=== PATIENT | female | born 1995 | race Caucasian/White ===

== ENCOUNTER 2022-08-07 01:08 | Emergency (ER) | payer BC, SELFPAY ==
--- NOTE | 2022-08-07 | ECG_ITS ---
Test Reason : CHEST PAIN Blood Pressure : / mmHG Vent. Rate : 068 BPM Atrial Rate : 068 BPM P-R Int : 130 ms QRS Dur : 082 ms QT Int : 398 ms P-R-T Axes : 054 038 034 degrees QTc Int : 423 ms Normal sinus rhythm with sinus arrhythmia Normal ECG No previous ECGs available Referred By: Generic ED Physician Electronically Signed By:YENI LEE MD
--- NOTE | ~2022-08-07 | XR_ITS ---
EXAMINATION: XR CHEST CLINICAL INFORMATION: Chest pain COMPARISON: 02/02/2009 TECHNIQUE: 2 views of the chest were obtained. FINDINGS: The lungs are clear with no focal consolidation. No evidence of pneumothorax, pulmonary edema, or pleural effusions. The cardiomediastinal silhouette is unremarkable. No acute osseous findings. XR/XR chest 2V IMPRESSION: No acute cardiopulmonary findings.
[2022-08-07 01:45] VITALS: BP 117/74; PULSE 69; RESP 14; TEMP 36.8; O2SAT 98; BMI 24.1
--- OUTSIDE RECORDS SUMMARY | 2022-08-07 03:16 | XMS_ITS | Continuity of Care Document ---
:1995 Author Organization [facility] Address [address] [place] [address]- Care Team Providers Name Role Phone Gerardo CHOW, Javier Godwin Primary Care Physician Encounter [facility] Date(s): 10/26/21 - 11/25/21 [facility] [address] [place] [address]- Allergies, Adverse Reactions, Alerts No Known Medication Allergies Immunizations Given and Recorded Vaccine Date Status Refusal Reason tetanus/diphtheria/pertussis, acel(Tdap)1 09/09/21 Given influenza virus vaccine, inactivated2 09/09/21 Given influenza virus vaccine, inactivated 11/15/17 Recorded influenza virus vaccine, inactivated 08/22/16 Recorded influenza virus vaccine, inactivated 08/17/15 Recorded SARS-CoV-2 (COVID-19) mRNA BNT-162b2 vac 02/11/21 Given SARS-CoV-2 (COVID-19) mRNA BNT-162b2 vac 01/21/21 Given tetanus-diphtheria toxoids (Td) 11/25/18 Recorded Hepatitis A Pediatric Vaccine 11/05/15 Recorded Hepatitis A Pediatric Vaccine 04/29/15 Recorded Meningococcal Conjugate Vaccine 04/29/15 Recorded 1Result Comment: Pt handled inj [id number] Comment: Pt handled inj well Medications Double Electric Breast Pump Double Electric Breast Pump, See Instructions, # 1 each, Refills 0, Tot. Refills 0, Maintenance, pregnacy, 11/04/21 16:56:00 EST, Compound Start Date: 11/04/21 Status: OrderedPrenatal Multivitamins By Mouth, Daily, 0 Refills, Maintenance, 08/10/21 12:42:00 EDT, Partial fill upon patient request ifthe prescription is for a schedule II opioid drug. Start Date: 08/10/21 Status: Ordered Problem List Condition Effective Dates Status Health Status Informant Elevated glucose tolerance Active test(Confirmed) Acne vulgaris(Confirmed) Active Breech presentation(Confirmed) Active Echogenic focus of heart of fetus Active affecting antepartum care of mother(Confirmed) Hyperhidrosis(Confirmed) Active Low weight gain, antepartum(Confirmed) Active Ketonuria(Confirmed) Active 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
--- OUTSIDE RECORDS SUMMARY | 2022-08-07 03:16 | XMS_ITS | Continuity of Care Document ---
:1995 Author Organization [facility] Address Unavailable , Care Team Providers Name Role Phone Gerardo CHOW, Javier Godwin Primary Care Physician [facility] Date(s): 11/08/21 - 12/08/21 [facility] Allergies, Adverse Reactions, Alerts No Known Medication [...] 04/29/15 Recorded 1Result Comment: Pt handled inj [id number] Comment: Pt handled inj well Medications acetaminophen 325 mg oral capsule 2 capsule = 650 mg, By Mouth, Every 4 hours, PRN as needed for pain, # 90 capsule, 1 Refills, Maintenance, 12/03/21 11:57:00 EST, Capsule, [facility]/pharmacy #[id number], Partial fill upon patient request if the prescription is for a schedule II opioid drug., 170... Start Date: 12/03/21 Status: Ordereddocusate sodium 100 mg oral tablet 1 tablet = 100 mg, By Mouth, 2 times a day, PRN for constipation, # 60 tablet, 0 Refills, Maintenance, 11/27/21 7:16:00 EST, Tablet, [id number], Partial fill upon patient request if the prescription is for a schedule II opioid drug., 170, cm,... Start Date: 11/27/21 Status: OrderedDouble Electric Breast Pump Double Electric Breast Pump, See Instructions, # 1 each, Refills 0, Tot. Refills 0, Maintenance, pregnacy, 11/04/21 16:56:00 EST, Compound Start Date: 11/04/21 Status: Orderedibuprofen 800 mg oral tablet 800 mg, 1, tablet, By Mouth, Every 8 hours, # 50 tablet, Refills 0, Tot. Refills 0, Maintenance, 11/27/21 7:16:00 EST, Route to Pharmacy Electronically, [facility]/pharmacy #[id number], Partial fill upon patient request if the prescription is for a schedule II opi... Start Date: 11/27/21 Status: OrderedoxyCODONE 5 mg oral tablet 5 mg, 1, tablet, By Mouth, Every 6 hours, PRN, # 10 tablet, Refills 0, Tot. Refills 0, Maintenance, as needed for pain, 11/27/21 7:16:00 EST, [facility] to [facility], [id number], 170, cm, 11/27/21 0:03:00 EST, Height, 78, kg, 11/23/21... Start Date: 11/27/21 Status: OrderedPrenatal Multivitamins By Mouth, Daily, 0 Refills, Maintenance, 08/10/21 12:42:00 EDT, Partial fill upon patient request ifthe prescription is for a schedule II opioid drug. Start Date: 08/10/21 Status: Orderedsimethicone 80 mg oral tablet, chewable 80 mg, 1, tablet, Chew, 3 times a day, PRN, # 36 tablet, Refills 0, Tot. Refills 0, Maintenance, as needed for gas, 11/27/21 7:16:00 EST, Route to [facility], [id number], Partial fill upon patient request if the prescription is fo... Start Date: 11/27/21 Status: Ordered Problem List Condition Effective Dates [...]
--- OUTSIDE RECORDS SUMMARY | 2022-08-07 03:16 | XMS_ITS | Continuity of Care Document ---
:1995 Author Organization [facility] Address [address] [place] [address]- Care Team Providers Name Role Phone Gerardo CHOW, Javier Godwin Primary Care Physician [place] [facility] [id number] Date(s): 10/19/21 - 10/26/21 [facility] [address] [place] [address]- Attending Physician: Brenda Larsen MD Allergies, Adverse Reactions, Alerts No Known Medication Allergies Immunizations Given and Recorded Vaccine Date Status Refusal Reason tetanus/diphtheria/pertussis, acel(Tdap)1 09/09/21 Given influenza virus vaccine, inactivated2 09/09/21 Given influenza virus vaccine, inactivated 11/15/17 Recorded SARS-CoV-2 (COVID-19) mRNA BNT-162b2 vac 02/11/21 Given SARS-CoV-2 (COVID-19) mRNA BNT-162b2 vac 01/21/21 Given tetanus-diphtheria toxoids (Td) 11/25/18 Recorded Hepatitis A Pediatric Vaccine 11/05/15 Recorded Hepatitis A Pediatric Vaccine 04/29/15 Recorded Meningococcal Conjugate Vaccine 04/29/15 Recorded 1Result Comment: Pt handled inj [id number] Comment: Pt handled inj well Medications Multivitamins By Mouth, Daily, 0 Refills, Maintenance, 08/10/21 12:42:00 EDT, Partial fill upon patient request ifthe prescription is for a schedule II opioid drug. Start Date: 08/10/21 Status: Ordered Problem List Condition Effective Dates Status Health Status Informant Elevated glucose tolerance Active test(Confirmed) Acne vulgaris(Confirmed) Active Echogenic focus of heart of fetus Active affecting antepartum care of mother(Confirmed) Hyperhidrosis(Confirmed) Active Low weight gain, antepartum(Confirmed) Active Ketonuria(Confirmed) Active Dyspareunia in female(Confirmed) Active Vital Signs Most recent to oldest [Reference Range]: 1 Height 168.2 cm (10/19/21 3:12 PM) Weight 76 kg (10/19/21 3:12 PM) Body Mass Index [18.5-24.99] 26.86 *H* (10/19/21 3:12 PM) Blood Pressure [90-138/55-84 mm Hg] 120/66 mm Hg (10/19/21 3:12 PM) Blood pressure sites Arm, right (10/19/21 3:12 PM) Social History Social History Type Response Smoking Status Never (less than 100 in life time) entered on: 08/10/21 Sex
--- OUTSIDE RECORDS SUMMARY | 2022-08-07 03:16 | XMS_ITS | Continuity of Care Document ---
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
--- OUTSIDE RECORDS SUMMARY | 2022-08-07 03:16 | XMS_ITS | Continuity of Care Document ---
:1995 Author Organization [facility] Address [address] [place] [address]- Care Team Providers Name Role Phone Javier Carrillo MD Primary Care Physician Encounter [facility] [id number] Date(s): 08/10/21 - 09/09/21 [facility] [address] [place] [address]- Attending Physician: Rusty Marks Admitting Physician: Rusty Marks Referring Physician: AdmtrRusty Allergies, Adverse Reactions, Alerts No Known Medication [...] 04/29/15 Recorded 1Result Comment: Pt handled inj [id number] Comment: Pt handled inj well Medications Multivitamins [...] mother(Confirmed) 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
--- OUTSIDE RECORDS SUMMARY | 2022-08-07 03:16 | XMS_ITS | Continuity of Care Document ---
:1995 Author Organization [facility] Address Unavailable , Care Team Providers Name Role Phone Gerardo CHOW, Javier Godwin Primary Care Physician [place] [facility] [place] 12[place]27[place] 01/26/22 [facility] Allergies, Adverse Reactions, Alerts No Known [...] 04/29/15 Recorded 1Result Comment: Pt handled inj [id number] Comment: Pt handled inj well Medications acetaminophen 325 mg oral capsule 2 capsule = 650 mg, By Mouth, Every 4 hours, PRN as needed for pain, # 90 capsule, 1 Refills, Maintenance, 12/03/21 11:57:00 EST, [facility], [id number], Partial fill upon patient request if the [...] 11/27/21 7:16:00 EST, Route to Pharmacy Electronically, [facility]/pharmacy #[id number], Partial fill upon patient request if the prescription is for a schedule II opi... Start Date: 11/27/21 Status: OrderedLactation vitamin vitamin, Refills 0, Maintenance, 12/30/21 15:53:00 EST, Supply Start Date: 12/30/21 Status: OrderedoxyCODONE 5 mg oral tablet 5 mg, 1, tablet, By Mouth, Every 6 hours, PRN, # 10 tablet, Refills 0, Tot. Refills 0, Maintenance, as needed for pain, 11/27/21 7:16:00 EST, Route to Pharmacy Electronically, [facility]/pharmacy #[id number], 170, cm, 11/27/21 0:03:00 EST, Height, [...]
--- OUTSIDE RECORDS SUMMARY | 2022-08-07 03:16 | XMS_ITS | Continuity of Care Document ---
:1995 Author Organization [facility] Address [address] [place] [address]- Care Team Providers Name Role Phone Gerardo CHOW, Javier Godwin Primary Care Physician Encounter [facility] Date(s): 08/27/21 - 12/25/21 [facility] [address] [place], [place] [address] Attending Physician: Kasie Mueller MD Allergies, Adverse Reactions, Alerts No Known [...] 04/29/15 Recorded 1Result Comment: Pt handled inj [id number] Comment: Pt handled inj well Medications acetaminophen 325 mg oral capsule 2 capsule = 650 mg, By Mouth, Every 4 hours, PRN as needed for pain, # 90 capsule, 1 Refills, Maintenance, 12/03/21 11:57:00 EST, [facility]aps[facility], [id number], Partial fill upon patient request if the prescription is for a schedule II opioid drug., 170... Start Date: 12/03/21 Status: Ordereddocusate sodium 100 mg oral tablet 1 tablet = 100 mg, By Mouth, 2 times a day, PRN for constipation, # 60 tablet, 0 Refills, Maintenance, 11/27/21 7:16:00 EST, Tablet, [facility]/pharmacy #[id number], Partial fill upon patient request [...] 11/27/21 7:16:00 EST, Route to Pharmacy Electronically, [facility]/pharmacy #[id number], Partial fill upon patient request if the prescription is for a schedule II opi... Start Date: 11/27/21 Status: OrderedoxyCODONE 5 mg oral tablet 5 mg, 1, tablet, By Mouth, Every 6 hours, PRN, # 10 tablet, Refills 0, Tot. Refills 0, Maintenance, as needed for pain, 11/27/21 7:16:00 EST, Route to Pharmacy Electronically, [facility]/pharmacy #[id number], 170, cm, 11/27/21 0:03:00 EST, Height, [...] 11/27/21 7:16:00 EST, Route to Pharmacy Electronically, [facility]/pharmacy #[id number], Partial fill upon patient request [...]
--- OUTSIDE RECORDS SUMMARY | 2022-08-07 03:16 | XMS_ITS | Continuity of Care Document ---
:1995 Author Organization [facility] Address [address] [place] [address]- Care Team Providers Name Role Phone Gerardo CHOW, Javier Godwin Primary Care Physician [place] [facility] [place]s): 07/28/21 - 08/27/21 [facility] [address] [place] [address] Attending Physician: Rusty Marks Admitting Physician: Rusty Marks Referring Physician: Admtr, Rusty Allergies, Adverse Reactions, Alerts No Known Medication Allergies Immunizations Given and Recorded Vaccine Date Status Refusal Reason SARS-CoV-2 (COVID-19) mRNA BNT-162b2 vac 02/11/21 Given SARS-CoV-2 (COVID-19) mRNA BNT-162b2 vac 01/21/21 Given Medications Multivitamins By Mouth, Daily, 0 Refills, [...]
--- OUTSIDE RECORDS SUMMARY | 2022-08-07 03:16 | XMS_ITS | Continuity of Care Document ---
:1995 Author Organization [facility] Address [address] [place] [address]- Care Team Providers Name Role Phone Gerardo CHOW, Javier Godwin Primary Care Physician Encounter [facility] [place] Date(s): 11/10/21 - 12/10/21 [facility] [address] [place] [address]- Allergies, Adverse Reactions, Alerts No Known Medication [...] 04/29/15 Recorded 1Result Comment: Pt handled inj [id number] Comment: Pt handled inj well Medications acetaminophen 325 mg oral capsule 2 capsule = 650 mg, By Mouth, Every 4 hours, PRN as needed for pain, # 90 capsule, 1 Refills, Maintenance, 12/03/21 11:57:00 EST, [facility], [id number], Partial fill upon patient request if the [...] 11/27/21 7:16:00 EST, Route to Pharmacy Electronically, [facility]/pharmacy #[id number], Partial fill upon patient request if [...]
--- OUTSIDE RECORDS SUMMARY | 2022-08-07 03:16 | XMS_ITS | Continuity of Care Document ---
:1995 Author Organization [facility] Address [address] [place] [address]- Care Team Providers Name Role Phone Gerardo CHOW, Javier Godwin Primary Care Physician Encounter [facility] Date(s): 10/17/21 - 11/16/21 [facility] [address] [place] [address]- Allergies, Adverse Reactions, Alerts No Known Medication [...] 04/29/15 Recorded 1Result Comment: Pt handled inj [id number] Comment: Pt handled inj well Medications Double [...]
--- OUTSIDE RECORDS SUMMARY | 2022-08-07 03:16 | XMS_ITS | Continuity of Care Document ---
:1995 Author Organization [facility] Address [address] [place] [address]- Care Team Providers Name Role Phone Gerardo CHOW, Javier Godwin Primary Care Physician [place] [facility] [place] 08/09/21 - 09/08/21 [facility] [address] [place], [place] [address] Allergies, Adverse Reactions, Alerts No Known Medication Allergies Immunizations Given and Recorded Vaccine Date Status Refusal Reason SARS-CoV-2 (COVID-19) mRNA BNT-162b2 vac 02/11/21 Given SARS-CoV-2 (COVID-19) mRNA BNT-162b2 vac 01/21/21 Given tetanus-diphtheria toxoids (Td) 11/25/18 Recorded influenza virus vaccine, inactivated 11/15/17 Recorded Hepatitis A Pediatric Vaccine 11/05/15 Recorded Hepatitis A Pediatric Vaccine 04/29/15 Recorded Meningococcal Conjugate Vaccine 04/29/15 Recorded Medications Multivitamins By Mouth, Daily, 0 Refills, [...]
--- OUTSIDE RECORDS SUMMARY | 2022-08-07 03:16 | XMS_ITS | Continuity of Care Document ---
:1995 Author Organization [facility] Address [address] [place] [address]- Care Team Providers Name Role Phone Javier Carrillo MD Primary Care Physician Encounter [facility] [id number] Date(s): 06/19/22 - 07/19/22 [facility] [address], [place] [address] Attending Physician: Rusty Marks Admitting Physician: AdmRusty hassan Referring Physician: AdmtrRusty Allergies, Adverse Reactions, Alerts [...] 04/29/15 Recorded 1Result Comment: Pt handled inj [id number] Comment: Pt handled inj well Problem List Condition Effective Dates Status Health Status Informant Acne vulgaris(Confirmed) Active anxiety(Confirmed) Active Hyperhidrosis(Confirmed) Active Ketonuria(Confirmed) Active 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 Care Team PersonnelName: Gerardo CHOW Javier Godwin Address: [address] [place] [id number]
--- OUTSIDE RECORDS SUMMARY | 2022-08-07 03:16 | XMS_ITS | Continuity of Care Document ---
:1995 Author Organization [facility] Address [address] [place] [address]- Care Team Providers Name Role Phone Gerardo CHOW, Javier Godwin Primary Care Physician Encounter [facility] [place] [place] [id number] Date(s): 08/17/21 - 08/24/21 [facility] [address] [place] [address]- Attending Physician: Not on Staff, Attending MD Allergies, Adverse Reactions, Alerts No Known [...]
--- OUTSIDE RECORDS SUMMARY | 2022-08-07 03:16 | XMS_ITS | Continuity of Care Document ---
:1995 Author Organization [facility] Address [address] [place] [address]- Care Team Providers Name Role Phone Gerardo CHOW, Javier Godwin Primary Care Physician Encounter [facility] Date(s): 10/26/21 - 10/26/[address] [address] Discharge Disposition: A-D/C Home Attending Physician: Farzana Patino MD Admitting Physician: Farzana Patino MD Referring Physician: Farzana Patino MD Allergies, Adverse Reactions, Alerts No Known [...] 04/29/15 Recorded 1Result Comment: Pt handled inj [id number] Comment: Pt handled inj well Medications Multivitamins [...] Active Vital Signs Most recent to oldest 1 2 3 [Reference Range]: Oxygen Saturation [94-100 %] 100 % 100 % 100 % (10/26/21 6:18 PM) (10/26/21 5:56 PM) (10/26/21 5:50 PM) Blood Pressure [90-138/55-84 113/74 mm Hg 121/67 mm Hg 122 /73 mm Hg mm Hg] (10/26/21 6:18 PM) (10/26/21 5:56 PM) (10/26/21 5:50 PM) Respiratory Rate [16-30 18 br/min br/min] (10/26/21 5:50 PM) Temperature [96.8-100.4 98.0 DegF DegF] (10/26/21 5:50 PM) Mode of Delivery (Oxygen) Room air (10/26/21 5:50 PM) Blood pressure sites Arm, right (10/26/21 5:50 PM) Temperature Route Oral (10/26/21 5:50 PM) Social History Social History Type Response Smoking Status Never (less than 100 in life time) entered on: 08/10/21 Sex
--- OUTSIDE RECORDS SUMMARY | 2022-08-07 03:16 | XMS_ITS | Continuity of Care Document ---
:1995 Author Organization [facility] Address [address] [place] [address]- Care Team Providers Name Role Phone Gerardo CHOW, Javier Godwin Primary Care Physician [facility]counter [facility] Date(s): 12/06/21 - 01/22/22 [facility] [address] [place], [place] [address] Attending Physician: Ayaan Sherman MD Allergies, Adverse Reactions, Alerts No Known [...] 04/29/15 Recorded 1Result Comment: Pt handled inj [id number] Comment: Pt handled inj well Medications acetaminophen 325 mg oral capsule 2 capsule = 650 mg, By Mouth, Every 4 hours, PRN as needed for pain, # 90 capsule, 1 Refills, Maintenance, 12/03/21 11:57:00 EST, [id number], Partial fill upon patient request if the prescription is for a schedule II opioid drug., 170... Start Date: 12/03/21 Status: Ordereddocusate sodium 100 mg oral tablet 1 tablet = 100 mg, By Mouth, 2 times a day, PRN for constipation, # 60 tablet, 0 Refills, Maintenance, 11/27/21 7:16:00 EST, Tablet, [facility]/pharmacy #[id number], Partial fill upon patient request if [...] 11/27/21 7:16:00 EST, Route to Pharmacy Electronically, [facility]/pharmacy #[id number], Partial fill upon patient request if [...] 11/27/21 7:16:00 EST, Route to Pharmacy Electronically, [facility]/pharmacy #[id number], 170, cm, 11/27/21 0:03:00 EST, Height, [...] 11/27/21 7:16:00 EST, Route to Pharmacy Electronically, [facility]/pharmacy #[id number], Partial fill upon patient request if the [...]
--- OUTSIDE RECORDS SUMMARY | 2022-08-07 03:16 | XMS_ITS | Continuity of Care Document ---
:1995 Author Organization [facility] Address [address] [place] [address]- Care Team Providers Name Role Phone Gerardo CHOW, Javier Godwin Primary Care Physician Encounter [facility] Date(s): 12/14/21 - 01/14/22 [facility] [address] [place], [place] [address] Attending Physician: Araceli Auguste MD Allergies, Adverse Reactions, Alerts No Known [...] 04/29/15 Recorded 1Result Comment: Pt handled inj [id number] Comment: Pt handled inj well Medications acetaminophen 325 mg oral capsule 2 capsule = 650 mg, By Mouth, Every 4 hours, PRN as needed for pain, # 90 capsule, 1 Refills, Maintenance, 12/03/21 11:57:00 EST, [facility], [id number], Partial fill upon patient request if the prescription is for a schedule II opioid drug., 170... Start Date: 12/03/21 Status: Ordereddocusate sodium 100 mg oral tablet 1 tablet = 100 mg, By Mouth, 2 times a day, PRN for constipation, # 60 tablet, 0 Refills, Maintenance, 11/27/21 7:16:00 EST, Tablet, [facility]/pharmacy #[id number], Partial fill upon patient request if [...] 11/27/21 7:16:00 EST, Route to Pharmacy Electronically, [facility]/pharmacy #[id number], Partial fill upon patient request if [...] 11/27/21 7:16:00 EST, Route to Pharmacy Electronically, [facility]/pharmacy #[id number], 170, cm, 11/27/21 0:03:00 EST, Height, [...] 11/27/21 7:16:00 EST, Route to Pharmacy Electronically, [facility]/pharmacy #[id number], Partial fill upon patient request if the [...]
--- OUTSIDE RECORDS SUMMARY | 2022-08-07 03:16 | XMS_ITS | Continuity of Care Document ---
:1995 Author Organization [facility] Address [address] [place] [address]- Care Team Providers Name Role Phone Gerardo CHOW, Javier Godwin Primary Care Physician Encounter [facility] Date(s): 07/28/21 - 08/27/21 [facility] [address] [place] [address] Attending Physician: Rusty Marks Admitting Physician: Rusty [...]
--- OUTSIDE RECORDS SUMMARY | 2022-08-07 03:16 | XMS_ITS | Continuity of Care Document ---
:1995 Author Organization [facility] Address [address] [place] [address]- Care Team Providers Name Role Phone Gerardo CHOW, Javier Godwin Primary Care Physician [facility]counter [facility] Date(s): 09/03/21 - 01/01/22 [facility] [address] [place], [place] [address] Attending Physician: Ayaan Sherman MD Allergies, [...] 04/29/15 Recorded 1Result Comment: Pt handled inj [id number] Comment: Pt handled inj well Medications acetaminophen 325 mg oral capsule 2 capsule = 650 mg, By Mouth, Every 4 hours, PRN as needed for pain, # 90 capsule, 1 Refills, Maintenance, 12/03/21 11:57:00 EST, Capsule, [id number], Partial fill upon patient request if the prescription is for a schedule II opioid drug., 170... Start Date: 12/03/21 Status: Ordereddocusate sodium 100 mg oral tablet 1 tablet = 100 mg, By Mouth, 2 times a day, PRN for constipation, # 60 tablet, 0 Refills, Maintenance, 11/27/21 7:16:00 EST, Tablet, [facility]/pharmacy #[id number], Partial fill upon patient [...] 11/27/21 7:16:00 EST, Route to Pharmacy Electronically, [facility]/pharmacy #[id number], Partial fill upon patient [...] 11/27/21 7:16:00 EST, Route to Pharmacy Electronically, [facility]/pharmacy #[id number], 170, cm, 11/27/21 0:03:00 [...] 11/27/21 7:16:00 EST, Route to Pharmacy Electronically, [facility]/pharmacy #[id number], Partial fill upon patient request if the [...]
--- OUTSIDE RECORDS SUMMARY | 2022-08-07 03:16 | XMS_ITS | Continuity of Care Document ---
:1995 Author Organization [facility] Address [address] [place] [address]- Care Team Providers Name Role Phone Gerardo CHOW, Javier Godwin Primary Care Physician [place] [facility] [id number] Date(s): 08/12/21 - 08/19/21 [facility] [address] [place] [address]- Attending Physician: Ayaan Sherman MD Allergies, Adverse [...] oldest [Reference Range]: 1 Height 168.2 cm (08/12/21 4:11 PM) Weight 70.7 kg (08/12/21 4:11 PM) Body Mass Index [18.5-24.99] 24.99 (08/12/21 4:11 PM) Blood Pressure [90-138/55-84 mm Hg] 112/62 mm Hg (08/12/21 4:11 PM) Blood pressure sites Arm, right (08/12/21 4:11 PM) Weight Obtained Via Standing scale (08/12/21 4:11 PM) Social History Social History Type Response Smoking Status Never (less than 100 in life time) entered on: 08/10/21 Sex
--- OUTSIDE RECORDS SUMMARY | 2022-08-07 03:16 | XMS_ITS | Continuity of Care Document ---
:1995 Author Organization [facility] Address [address] [place] [address]- Care Team Providers Name Role Phone Javier Carrillo MD Primary Care Physician Encounter [facility] Date(s): 06/15/22 - 07/19/22 [facility] [address] [place] [address]- Attending Physician: Sal Madison Allergies, Adverse Reactions, Alerts No Known Medication [...] 04/29/15 Recorded 1Result Comment: Pt handled inj [id number] Comment: Pt handled inj well Problem List Condition Effective Dates Status Health Status Informant Acne vulgaris(Confirmed) Active anxiety(Confirmed) Active Hyperhidrosis(Confirmed) Active Ketonuria(Confirmed) Active 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 Care Team PersonnelName: Javier Carrillo MD Address: [address] [place] [address]- [place]
--- OUTSIDE RECORDS SUMMARY | 2022-08-07 03:16 | XMS_ITS | Continuity of Care Document ---
:1995 Author Organization [facility] Address [address] [place] [address]- Care Team Providers Name Role Phone Gerardo CHOW, Javier Godwin Primary Care Physician Encounter [facility] Date(s): 08/16/21 - 09/15/21 [facility] [address] [place] [address]- Allergies, Adverse Reactions, Alerts No Known Medication [...] 04/29/15 Recorded 1Result Comment: Pt handled inj [id number] Comment: Pt handled inj well Medications Multivitamins [...]
--- OUTSIDE RECORDS SUMMARY | 2022-08-07 03:16 | XMS_ITS | Continuity of Care Document ---
:1995 Author Organization [facility] Address [address] [place] [address]- Care Team Providers Name Role Phone Gerardo CHOW, Javier Godwin Primary Care Physician [facility] Date(s): 12/02/21 - 01/01/22 [facility] [address] [place], [place] [address] Allergies, Adverse Reactions, Alerts No [...] 04/29/15 Recorded 1Result Comment: Pt handled inj [id number] Comment: Pt handled inj well Medications acetaminophen 325 mg oral capsule 2 capsule = 650 mg, By Mouth, Every 4 hours, PRN as needed for pain, # 90 capsule, 1 Refills, Maintenance, 12/03/21 11:57:00 EST, [facility], [id number], Partial fill upon patient request if the [...] 11/27/21 7:16:00 EST, Route to Pharmacy Electronically, [facility]/pharmacy #[id number], Partial fill upon patient request [...] 11/27/21 7:16:00 EST, Route to Pharmacy Electronically, [facility]/pharmacy #[id number], 170, cm, 11/27/21 0:03:00 EST, [...] 11/27/21 7:16:00 EST, Route to Pharmacy Electronically, [facility]/pharmacy #[id number], Partial fill upon patient request if the [...]
--- OUTSIDE RECORDS SUMMARY | 2022-08-07 03:16 | XMS_ITS | Continuity of Care Document ---
:1995 Author Organization [facility] Address Unavailable , Care Team Providers Name Role Phone Gerardo CHOW, Javier Godwin Primary Care Physician [place] [facility] [place]06[place]22 [place] 05/06/22 [facility] Allergies, Adverse Reactions, Alerts No Known Medication [...] 04/29/15 Recorded 1Result Comment: Pt handled inj [id number] Comment: Pt handled inj well Problem List Condition Effective Dates Status Health Status Informant Acne vulgaris(Confirmed) Active anxiety(Confirmed) Active Hyperhidrosis(Confirmed) Active Ketonuria(Confirmed) Active 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
--- OUTSIDE RECORDS SUMMARY | 2022-08-07 03:16 | XMS_ITS | Continuity of Care Document ---
:1995 Author Organization [facility] Address [address] [place] [address]- Care Team Providers Name Role Phone Gerardo CHOW, Javier Godwin Primary Care Physician [facility]counter [facility] Date(s): 10/07/21 - 10/14/21 [facility] [address] [place] [address]- Attending Physician: Kasie Mueller MD Allergies, Adverse [...] 04/29/15 Recorded 1Result Comment: Pt handled inj [id number] Comment: Pt handled inj well Medications Multivitamins [...] Hyperhidrosis(Confirmed) Active Low weight gain, antepartum(Confirmed) Active Dyspareunia in female(Confirmed) Active Vital Signs Most recent to oldest [Reference Range]: 1 Height 168.2 cm (10/07/21 10:47 AM) Weight 73.0 kg (10/07/21 10:47 AM) Body Mass Index [18.5-24.99] 25.8 *H* (10/07/21 10:47 AM) Dry Weight 73.0 kg (10/07/21 10:47 AM) Weight Obtained Via Standing scale (10/07/21 10:47 AM) Dry Weight Obtained Via Standing scale (10/07/21 10:47 AM) Social History Social History Type Response Smoking Status Never (less than 100 in life time) entered on: 08/10/21 Sex
--- OUTSIDE RECORDS SUMMARY | 2022-08-07 03:16 | XMS_ITS | Continuity of Care Document ---
:1995 Author Organization [facility] Address [address] [place] [address]- Care Team Providers Name Role Phone Gerardo CHOW, Javier Godwin Primary Care Physician [facility]counter [facility] Date(s): 09/24/21 - 09/24/[address] [address] Discharge Disposition: A-D/C Home Attending Physician: Shannon Aviles MD Admitting Physician: Shannon Aviles MD Referring Physician: Shannon Aviles MD Allergies, Adverse Reactions, [...] 04/29/15 Recorded 1Result Comment: Pt handled inj [id number] Comment: Pt handled inj well Medications Multivitamins [...]
--- OUTSIDE RECORDS SUMMARY | 2022-08-07 03:16 | XMS_ITS | Continuity of Care Document ---
:1995 Author Organization [facility] Address [address] [place] [address]- Care Team Providers Name Role Phone Javier Carrillo MD Primary Care Physician En[place] [facility] [place] Date(s): 06/27/22 - 08/06/22 [facility] [address] [place], [place] [address] Attending Physician: Ayaan Sherman MD Allergies, Adverse [...] 04/29/15 Recorded 1Result Comment: Pt handled inj [id number] Comment: Pt handled inj well Problem List Condition Confirmation Course Effective Dates Status Health I nformant Status Acne vulgaris Confirmed Active anxiety Confirmed Active Hyperhidrosis Confirmed Active Ketonuria Confirmed Active Dyspareunia in Confirmed Active female Social History Social History Type Response Smoking Status Never (less than 100 in life time) entered on: 08/10/21 Sex Patient Care team information PersonnelName: Javier Carrillo MD Address: Address: [address] [place], [place] [address]
--- OUTSIDE RECORDS SUMMARY | 2022-08-07 03:16 | XMS_ITS | Continuity of Care Document ---
:1995 Author Organization [facility] Address [address] [place] [address]- Care Team Providers Name Role Phone Javier Carrillo MD Primary Care Physician [place] [facility] [place](s): 11/24/21 - 11/27/[address] [address] Discharge Disposition: A-D/C Home Attending Physician: Kyra Vazquez MD Admitting Physician: Kyra Vazquez MD Referring Physician: Kyra Vazquez MD Allergies, Adverse Reactions, Alerts No Known [...] 04/29/15 Recorded 1Result Comment: Pt handled inj [id number] Comment: Pt handled inj well Medications acetaminophen 325 mg oral capsule 2 capsule = 650 mg, By Mouth, Every 4 hours, PRN as needed for pain, # 50 capsule, 0 Refills, Maintenance, 11/27/21 7:16:00 EST, [facility], [id number], Partial fill upon patient request if the prescription is for a schedule II opioid drug., 170,... Start Date: 11/27/21 Status: OrderedAcetaminophen Tablet 650 mg, Tablet, By Mouth, (1-3), may give 325mg per patient preference and re- dose with 325mg within4 hours if needed. Patient should only receive a total of 650mg of Acetaminophen every 4 hours., 11/27/21 8:00:00 EST Start Date: 11/27/21 Stop Date: 11/27/21 Status: Completeddocusate sodium 100 mg oral tablet 1 tablet = 100 mg, By Mouth, 2 times a day, PRN for constipation, # 60 tablet, 0 Refills, Maintenance, 11/27/21 7:16:00 EST, Tablet, [facility]/pharmacy #[id number], Partial fill upon patient request if [...] 7:16:00 EST, Route to Pharmacy Electronically, [facility]/pharmacy #[id number], Partial fill upon patient request if the prescription is for a schedule II opi... Start Date: 11/27/21 Status: OrderedoxyCODONE 5 mg oral tablet 5 mg, 1, tablet, By Mouth, Every 6 hours, PRN, # 10 tablet, Refills 0, Tot. Refills 0, Maintenance, as needed for pain, 11/27/21 7:16:00 EST, Route to Pharmacy Electronically, [facility]/pharmacy #[id number], 170, cm, 11/27/21 0:03:00 EST, Height, 78, kg, 11/23/21... Start Date: 11/27/21 Status: OrderedOxyCODONE IR Tablet 5 mg, Tablet, By Mouth, Every 3 hours, PRN for Pain , Severe, (7-10), Routine, 11/25/21 8:14:00 EST Start Date: 11/25/21 Stop Date: 11/27/21 Status: DiscontinuedPrenatal Multivitamins By Mouth, Daily, 0 Refills, Maintenance, [...] 7:16:00 EST, Route to Pharmacy Electronically, [facility]/pharmacy #[id number], Partial fill upon patient request if the prescription is fo... Start Date: 11/27/21 Status: Ordered Problem List Condition Effective Dates Status Health Status Informant Elevated glucose tolerance Active test(Confirmed) Acne vulgaris(Confirmed) Active Breech presentation(Confirmed) Active Echogenic focus of heart of fetus Active affecting antepartum care of mother(Confirmed) Hyperhidrosis(Confirmed) Active Low weight gain, antepartum(Confirmed) Active Ketonuria(Confirmed) Active Dyspareunia in female(Confirmed) Active Procedures Procedure Date Related Diagnosis Body Site Status delivery only; 11/24/21 Comp leted Vital Signs Most recent to oldest 1 2 3 4 [Reference Range]: Height 170 cm 170 cm 170 cm (11/27/21 12:03 AM) (11/26/21 3:28 PM) (11/26/21 12:10 AM ) Weight 78 kg (11/23/21 7:19 PM) Oxygen Saturation 100 % 100 % 95 % [94-100 %] (11/27/21 8:00 AM) (11/27/21 12:03 AM) (11/26/21 3:28 PM) Pulse Rate [55-90 bpm] 82 bpm 81 bpm 83 bpm (11/27/21 8:00 AM) (11/27/21 12:03 AM) (11/26/21 3:28 PM) Body Mass Index 26.99 [18.5-24.99] *H* (11/23/21 7:19 PM) Blood Pressure 121/77 mm Hg 129/76 mm Hg 126/77 mm Hg [90-138/55-84 mm Hg] (11/27/21 8:00 AM) (11/27/21 12:03 AM) (11/26/21 3:28 PM) Respiratory Rate [16-30 20 br/min 18 br/min 18 br/min 18 b r/min br/min] (11/27/21 10:23 AM) (11/27/21 8:00 AM) (11/27/21 7:02 AM) (11/27/21 7:02 AM) Temperature [96.8-100.4 98.5 DegF 97.8 DegF 98.0 DegF DegF] (11/27/21 8:00 AM) (11/27/21 12:03 AM) (11/26/21 3:28 PM) Mode of Delivery Room air Room air Room air (Oxygen) (11/27/21 8:00 AM) (11/27/21 12:03 AM) (11/26/21 3:28 PM) Blood pressure sites Arm, left Arm, right Arm, right (11/27/21 8:00 AM) (11/27/21 12:03 AM) (11/26/21 3:28 PM) Temperature Route Oral Oral Oral (11/27/21 8:00 AM) (11/27/21 12:03 AM) (11/26/21 3:28 PM) Dry Weight 78 kg (11/23/21 7:19 PM) Social History Social History Type Response Smoking Status Never (less than 100 in life time) entered on: 08/10/21 Sex
--- OUTSIDE RECORDS SUMMARY | 2022-08-07 03:16 | XMS_ITS | Continuity of Care Document ---
:1995 Author Organization [facility] Address [address] [place] [address]- Care Team Providers Name Role Phone Gerardo CHOW, Javier Godwin Primary Care Physician Encounter [facility] Date(s): 04/06/22 - 04/13/22 [facility] [address] [place], [place] [address] Attending Physician: Kasie Mueller MD Allergies, Adverse [...] 04/29/15 Recorded 1Result Comment: Pt handled inj [id number] Comment: Pt handled inj well Medications No Known Medications Problem List Condition Effective Dates Status Health Status Informant Acne vulgaris(Confirmed) Active anxiety(Confirmed) Active Hyperhidrosis(Confirmed) Active Ketonuria(Confirmed) Active Dyspareunia in female(Confirmed) Active Vital Signs Most recent to oldest [Reference Range]: 1 Height 170 cm (04/06/22 2:50 PM) Social History Social History Type Response Smoking Status Never (less than 100 in life time) entered on: 08/10/21 Sex
--- OUTSIDE RECORDS SUMMARY | 2022-08-07 03:16 | XMS_ITS | Continuity of Care Document ---
:1995 Author Organization [facility] Address [address] [place] [address]- Care Team Providers Name Role Phone Gerardo CHOW, Javier Godwin Primary Care Physician Encounter [facility] Date(s): 10/07/21 - 10/14/21 [facility] [address] [place] [address] Attending Physician: Not on Staff, Attending MD Referring Physician: Ayaan Sherman MD Allergies, Adverse Reactions, [...] 04/29/15 Recorded 1Result Comment: Pt handled inj [id number] Comment: Pt handled inj well Medications Multivitamins [...] gain, antepartum(Confirmed) Active 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
--- OUTSIDE RECORDS SUMMARY | 2022-08-07 03:16 | XMS_ITS | Continuity of Care Document ---
:1995 Author Organization [facility] Address [address] [place] [address]- Care Team Providers Name Role Phone Gerardo CHOW, Javier Godwin Primary Care Physician [place] [facility] [id number] Date(s): 10/26/21 - 11/02/21 [facility] [address] [place] [address]- Attending Physician: Not on Staff, Attending MD [...] 04/29/15 Recorded 1Result Comment: Pt handled inj [id number] Comment: Pt handled inj well Medications Multivitamins [...] oldest [Reference Range]: 1 Height 168.2 cm (10/26/21 4:15 PM) Blood Pressure [90-138/55-84 mm Hg] 150/90 mm Hg *H* (10/26/21 4:15 PM) Blood pressure sites Arm, left (10/26/21 4:15 PM) Social History Social History Type Response Smoking Status Never (less than 100 in life time) entered on: 08/10/21 Sex
--- OUTSIDE RECORDS SUMMARY | 2022-08-07 03:16 | XMS_ITS | Continuity of Care Document ---
:1995 Author Organization [facility] Address [address] [place] [address]- Care Team Providers Name Role Phone Gerardo CHOW, Javier Godwin Primary Care Physician Encounter [facility] Date(s): 10/07/21 - 11/06/[facility] [address] [place] [address] Attending Physician: Rusty Marks Admitting Physician: Admtr, Rusty Referring Physician: Admtr, Ar8 Allergies, Adverse Reactions, Alerts No Known Medication [...] 04/29/15 Recorded 1Result Comment: Pt handled inj [id number] Comment: Pt handled inj well Medications Double [...]
--- OUTSIDE RECORDS SUMMARY | 2022-08-07 03:16 | XMS_ITS | Continuity of Care Document ---
:1995 Author Organization [facility] Address [address] [place] [address]- Care Team Providers Name Role Phone Gerardo CHOW, Javier Godwin Primary Care Physician [place] [facility] [place]16[place] 09/15/21 [facility] [address] [place] [address]- Allergies, Adverse Reactions, Alerts No Known Medication [...] 04/29/15 Recorded 1Result Comment: Pt handled inj [id number] Comment: Pt handled inj well Medications Multivitamins [...]
--- OUTSIDE RECORDS SUMMARY | 2022-08-07 03:16 | XMS_ITS | Continuity of Care Document ---
:1995 Author Organization [facility] Address [address] [place] [address]- Care Team Providers Name Role Phone Gerardo CHOW, Javier Godwin Primary Care Physician En[place] [facility] [place] Date(s): 11/18/21 - 11/25/21 [facility] [address] [place] [address]- Attending Physician: Ayaan Sherman MD Allergies, Adverse [...] 04/29/15 Recorded 1Result Comment: Pt handled inj [id number] Comment: Pt handled inj well Medications Double [...]
--- OUTSIDE RECORDS SUMMARY | 2022-08-07 03:16 | XMS_ITS | Continuity of Care Document ---
:1995 Author Organization [facility] Address [address] [place] [address]- Care Team Providers Name Role Phone Gerardo CHOW, Javier Godwin Primary Care Physician En[facility] [place] Date(s): 12/30/21 - 01/06/22 [facility] [address] [place], [place] [address] Attending Physician: Ayaan Sherman [...] 04/29/15 Recorded 1Result Comment: Pt handled inj [id number] Comment: Pt handled inj well Medications acetaminophen 325 mg oral capsule 2 capsule = 650 mg, By Mouth, Every 4 hours, PRN as needed for pain, # 90 capsule, 1 Refills, Maintenance, 12/03/21 11:57:00 EST, [id number] Partial fill upon patient request if the prescription is for a schedule II opioid drug., 170... Start Date: 12/03/21 Status: Ordereddocusate sodium 100 mg oral tablet 1 tablet = 100 mg, By Mouth, 2 times a day, PRN for constipation, # 60 tablet, 0 Refills, Maintenance, 11/27/21 7:16:00 EST, Tablet, [facility]/pharmacy #[id number], Partial fill upon patient request [...] 11/27/21 7:16:00 EST, Route to Pharmacy Electronically, [facility]/pharmacy #[id number], Partial fill upon patient request [...] 11/27/21 7:16:00 EST, Route to Pharmacy Electronically, [facility]/pharmacy #[id number], 170, cm, 11/27/21 0:03:00 EST, [...] 11/27/21 7:16:00 EST, Route to Pharmacy Electronically, [facility]/pharmacy #[id number], Partial fill upon patient request if the [...] oldest [Reference Range]: 1 Height 170 cm (12/30/21 3:52 PM) Weight 66.3 kg (12/30/21 3:52 PM) Body Mass Index [18.5-24.99] 22.94 (12/30/21 3:52 PM) Blood Pressure [90-138/55-84 mm Hg] 104/62 mm Hg (12/30/21 3:52 PM) Blood pressure sites Arm, right (12/30/21 3:52 PM) Weight Obtained Via Standing scale (12/30/21 3:52 PM) Social History Social History Type Response Smoking Status Never (less than 100 in life time) entered on: 08/10/21 Sex
--- OUTSIDE RECORDS SUMMARY | 2022-08-07 03:17 | XMS_ITS | Continuity of Care Document ---
:1995 Author Organization [facility] Address [address] [place] [address]- Care Team Providers Name Role Phone Javier Carrillo MD Primary Care Physician En[place] [facility] Date(s): 06/27/22 - 07/27/22 [facility] [address] [place], [place] [address] Allergies, Adverse Reactions, Alerts No Known Medication [...] 04/29/15 Recorded 1Result Comment: Pt handled inj [id number] Comment: Pt handled inj well Problem List [...] PersonnelName: Javier Carrillo MD Address: Address: [address] [place] [address]- [place]
--- OUTSIDE RECORDS SUMMARY | 2022-08-07 03:17 | XMS_ITS | Continuity of Care Document ---
:1995 Author Organization [facility] Address [address] [place] [address]- Care Team Providers Name Role Phone Javier Carrillo MD Primary Care Physician [place] [facility] [place] Date(s): 03/25/22 - 07/23/22 [facility] [address] [place], [place] [address] Attending Physician: Ayaan Sherman [...] 04/29/15 Recorded 1Result Comment: Pt handled inj [id number] Comment: Pt handled inj well Problem List Condition Effective Dates Status Health Status Informant Acne vulgaris(Confirmed) Active anxiety(Confirmed) Active Hyperhidrosis(Confirmed) Active Ketonuria(Confirmed) Active 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
--- OUTSIDE RECORDS SUMMARY | 2022-08-07 03:17 | XMS_ITS | Continuity of Care Document ---
:1995 Author Organization [facility] Address [address] [place] [address]- Care Team Providers Name Role Phone Gerardo CHOW, Javier Godwin Primary Care Physician [place] [facility] [place] 09/02/21 [facility] [address] [place] [address]- Allergies, Adverse Reactions, Alerts No Known Medication [...]
--- OUTSIDE RECORDS SUMMARY | 2022-08-07 03:17 | XMS_ITS | Continuity of Care Document ---
:1995 Author Organization [facility] Address [address] [place] [address]- Care Team Providers Name Role Phone Gerardo CHOW, Javier Godwin Primary Care Physician [place] [facility] [place]s): 04/06/22 - 05/06/22 [facility] [address] [place], [place] [address] Attending Physician: Rusty Marks Admitting Physician: Rusty Marks Referring Physician: AdmRusty hassan Allergies, Adverse Reactions, Alerts No Known Medication [...] 04/29/15 Recorded 1Result Comment: Pt handled inj [id number] Comment: Pt handled inj well Problem List Condition Effective Dates Status Health Status Informant Acne vulgaris(Confirmed) Active anxiety(Confirmed) Active Hyperhidrosis(Confirmed) Active Ketonuria(Confirmed) Active 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
--- OUTSIDE RECORDS SUMMARY | 2022-08-07 03:17 | XMS_ITS | Continuity of Care Document ---
:1995 Author Organization [facility] Address [address] [place] [address]- Care Team Providers Name Role Phone Gerardo CHOW, Javier Godwin Primary Care Physician Encounter [facility] Date(s): 08/12/21 - 11/06/21 [facility] [address] [place], [place] [address] Attending Physician: Ayaan Sherman MD [...] 04/29/15 Recorded 1Result Comment: Pt handled inj [id number] Comment: Pt handled inj well Medications Double [...]
--- OUTSIDE RECORDS SUMMARY | 2022-08-07 03:17 | XMS_ITS | Continuity of Care Document ---
:1995 Author Organization [facility] Address [address] [place] [address]- Care Team Providers Name Role Phone Gerardo CHOW, Javier Godwin Primary Care Physician Encounter [facility] Date(s): 08/10/21 - 09/09/21 [facility] [address] [place] [address]- Allergies, Adverse Reactions, Alerts No Known Medication [...] 04/29/15 Recorded 1Result Comment: Pt handled inj [id number] Comment: Pt handled inj well Medications Multivitamins [...]
--- OUTSIDE RECORDS SUMMARY | 2022-08-07 03:17 | XMS_ITS | Continuity of Care Document ---
:1995 Author Organization [facility] Address [address] [place] [address]- Care Team Providers Name Role Phone Gerardo CHOW, Javier Godwin Primary Care Physician Encounter [facility] Date(s): 11/11/21 - 11/18/21 [facility] [address] [place], [place] [address] Attending Physician: Kasie Mueller MD Allergies, [...] 04/29/15 Recorded 1Result Comment: Pt handled inj [id number] Comment: Pt handled inj well Medications Double [...] oldest [Reference Range]: 1 Height 168.2 cm (11/11/21 11:13 AM) Weight 78.2 kg (11/11/21 11:13 AM) Body Mass Index [18.5-24.99] 27.64 *H* (11/11/21 11:13 AM) Blood Pressure [90-138/55-84 mm Hg] 116/68 mm Hg (11/11/21 11:13 AM) Blood pressure sites Arm, right (11/11/21 11:13 AM) Weight Obtained Via Standing scale (11/11/21 11:13 AM) Social History Social History Type Response Smoking Status Never (less than 100 in life time) entered on: 08/10/21 Sex
--- OUTSIDE RECORDS SUMMARY | 2022-08-07 03:17 | XMS_ITS | Continuity of Care Document ---
:1995 Author Organization [facility] Address [address] [place] [address]- Care Team Providers Name Role Phone Gerardo CHOW, Javier Godwin Primary Care Physician Encounter [facility] Date(s): 01/23/22 - 02/22/22 [facility] [address] [place], [place] [address] Allergies, Adverse Reactions, Alerts [...] 04/29/15 Recorded 1Result Comment: Pt handled inj [id number] Comment: Pt handled inj well Medications acetaminophen 325 mg oral capsule 2 capsule = 650 mg, By Mouth, Every 4 hours, PRN as needed for pain, # 90 capsule, 1 Refills, Maintenance, 12/03/21 11:57:00 EST, Capsule, [id number], Partial fill upon patient request if the [...] 11/27/21 7:16:00 EST, Route to Pharmacy Electronically, [facility] #[id number], Partial fill upon patient [...] 11/27/21 7:16:00 EST, Route to Pharmacy Electronically, [facility]pharmacy #[id number], 170, cm, 11/27/21 0:03:00 [...] 11/27/21 7:16:00 EST, Route to Pharmacy Electronically, [facility]/pharmacy #[id number], Partial fill upon patient request if the [...]
--- OUTSIDE RECORDS SUMMARY | 2022-08-07 03:17 | XMS_ITS | Continuity of Care Document ---
:1995 Author Organization [facility] Address [address] [place] [address]- Care Team Providers Name Role Phone Gerardo CHOW, Javier Godwin Primary Care Physician Encounter [facility] Date(s): 12/27/21 - 01/26/22 [facility] [address] [place], [place] [address] Allergies, Adverse Reactions, Alerts No Known Medication [...] 04/29/15 Recorded 1Result Comment: Pt handled inj [id number] Comment: Pt handled inj well Medications acetaminophen 325 mg oral capsule 2 capsule = 650 mg, By Mouth, Every 4 hours, PRN as needed for pain, # 90 capsule, 1 Refills, Maintenance, 12/03/21 11:57:00 EST, Capsule, [id number], Partial fill upon patient request if the prescription is for a schedule II opioid drug., 170... Start Date: 12/03/21 Status: Ordereddocusate sodium 100 mg oral tablet 1 tablet = 100 mg, By Mouth, 2 times a day, PRN for constipation, # 60 tablet, 0 Refills, Maintenance, 11/27/21 7:16:00 EST, Tablet, [facility]/pharmacy #[id number], Partial fill upon patient [...] 11/27/21 7:16:00 EST, Route to Pharmacy Electronically, [facility]pharmacy #[id number], Partial fill upon patient [...] 11/27/21 7:16:00 EST, Route to Pharmacy Electronically, [facility]/pharmacy #[id number], 170, cm, 11/27/21 0:03:00 [...] 11/27/21 7:16:00 EST, Route to Pharmacy Electronically, [facility]/pharmacy #[id number], Partial fill upon patient request if the [...]
--- OUTSIDE RECORDS SUMMARY | 2022-08-07 03:17 | XMS_ITS | Continuity of Care Document ---
:1995 Author Organization [facility] Address [address] [place] [address]- Care Team Providers Name Role Phone Gerardo CHOW, Javire Godwin Primary Care Physician Encounter [facility] Date(s): 04/06/22 - 05/06/22 [facility] [address] [place], [place] [address] Allergies, Adverse Reactions, Alerts No Known Medication [...] 04/29/15 Recorded 1Result Comment: Pt handled inj [id number] Comment: Pt handled inj well Problem List Condition Effective Dates Status Health Status Informant Acne vulgaris(Confirmed) Active anxiety(Confirmed) Active Hyperhidrosis(Confirmed) Active Ketonuria(Confirmed) Active 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
--- OUTSIDE RECORDS SUMMARY | 2022-08-07 03:17 | XMS_ITS | Continuity of Care Document ---
:1995 Author Organization [facility] Address [address] [place] [address]- Care Team Providers Name Role Phone Javier Carrillo MD Primary Care Physician Encounter [facility] Date(s): 06/27/22 - 07/27/22 [facility] [address] [place] [address] [place] Allergies, Adverse Reactions, Alerts No Known Medication [...] 04/29/15 Recorded 1Result Comment: Pt handled inj [id number] Comment: Pt handled inj well Problem List [...] PersonnelName: Javier Carrillo MD Address: Address: [address] [place] [address]- [place]
== END 2022-08-07 03:26 | disposition left against medical advice (07) ==
PROVIDERS: Emergency Provider Emergency Medicine
DX: R07.9 Chest pain, unspecified (principal)
CPT/HCPCS: 71046; 93005; 99283